=== PATIENT | female | born 1995 | race Caucasian/White ===

== ENCOUNTER 2018-12-24 10:43 | Inpatient (IN) | payer BC ==
[2018-12-24] MEDS ORDERED: Buffered Lidocaine 1% SYRIN* 1 ML/SYRINGE INTRADERM ONE (13:01)
[2018-12-24] MEDS ORDERED: Misoprostol TAB* 100 MCG PO ONE (13:01)
[2018-12-24] MEDS ORDERED: Lactated Ringers 1000 ML Bag* 1,000 ML IV ONE (13:01)
[2018-12-24] MEDS ORDERED: Promethazine INJ(RESTRICTED)* 25 MG/ML 1 ML VIAL IV ONE (13:01)
[2018-12-24] MEDS ORDERED: Nalbuphine* 10 MG/ML 1 ML VIAL IV ONE (13:01)
--- NOTE | 2018-12-24 13:11 | HP ---
General Information - Reason for Visit Pt presents to L&D for IOL for full term and preeclampsia. Pt denies BLAIR or epigastric pain, pt reports increased edema of feet and face. Pt denies LOF or VB. Pt reports +FM. - General Information Maternal Age: 23 Grav: 2 Para: 0 SAB: 1 IEA: 0 Estimated Due Date: 12/19/18 Determined By: LMP Gestational Age in Weeks/Days: 40w 5d Maternal Blood Type and Rh: B Positive - Results this Serology/RPR Result: Non-Reactive Rubella Result: Immune HBsAg Result: Negative HIV Result: Negative GBS Culture Result: Negative Past Medical History Pertinent Past Medical History: Non-Contributory Pertinent Past Surgical History: None Pertinent Family History: See Records - PGM: DM - Antepartal Records Antepartal Records: Reviewed, Complicated by: - BMI 34, anemia, Gestational diabetes diet controlled, preeclampsia Review of Systems Constitutional: Comfortable CV Complaint: No Respiratory: Shortness of Breath: No Gastrointestinal: No Nausea/Vomiting, Normal Bowel Movement Genitourinary: No Dysuria, No Bleeding, No Leaking Fluid Musculoskeletal: No Complaint, No Epigastric Pain Neurological: No Headache, No Visual Changes Movement: Normal Exam Allergies/Adverse Reactions: Allergies No Known Allergies Allergy (Verified 12/24/18 11:35) T:99.1, P:86, R:20, BP:165/80 repeat 146/77, O2:100% Lab Values - Entire Visit: CBC, type and screen and CMP pending. CBC/CMP from 12/21/18: WNL, 24hr urine: 300 - Measurements Height: 5 ft 2 in Weight: 200 lb Weight in lbs: [id number] Body Mass Index (BMI): 36.6 Pre- Weight: 185 lb - Exam Breast: Breast Exam Deferred CVA: No CVA Tenderness Extremities: No Edema Heart: Normal Rhythm/Heart Sounds HEENT: No Significant Findings Lungs: Clear Bilaterally Rectal: Rectal Exam Deferred Reflexes: DTR 2+ Thyroid: No Thyromegaly - Abdominal Exam Abdomen Exam: Fundal Height Consistent with Dates - Ultrasound/Biophysical Profile Ultrasound Status: Not Done Targeted Exam Findings Estimated Weight: [id number] Cervical Exam: Fingertip Effacement: Thick Station: -2 Presenting Part: Vertex Membrane Status: Intact Bleeding/Discharge: None EFM Findings - External Monitor Findings Baseline Heart Rate: 150 External Monitor Findings: Accelerations Present, No Pattern of Variable or Late Decelerations, Variability Moderate, Baseline Stable Contractions: Irregular, Mild, < 45 Seconds Assessment/Plan - Assessment 23 y.o. , 40w5d EGA, preeclampsia, gestational diabetes (diet controlled) , BMI 34, Cat I NST - Obstetrical Risk Factors Obstetrical Risk Factors: Obesity, PreEclampsia, Gestational Diabetes - Plan Plan: Induction - Date/Time of Admission Date of Admission: 12/24/18 Time of Admission: 13:00
[2018-12-24 13:54] LABS: ABS Lymphocytes 1.9 10^3/ul (1.0-4.8); ABS Monocytes 0.7 10^3/ul (0-0.8); ABS Neutrophils 8.2 10^3/ul (1.5-7.7); Eosinophil % 0.4 %; Hematocrit 31 % (35-47); Hemoglobin 10.4 g/dL (12.0-16.0); Lymphocyte % 17.8 %; Mean Corpuscular HGB Conc 34 g/dL (31-36); Mean Corpuscular Hemoglobin 29 pg (27-31); Mean Corpuscular Volume 85 fL (80-97); Mean Platelet Volume 9.6 fL (7.4-10.4); Platelet Count 199 10^3/uL (150-450); Red Blood Count 3.59 10^6 /uL (3.70-4.87); Red Cell Distribution Width 15 % (10-15); White Blood Count 10.9 10^3/uL (3.5-10.8)
[2018-12-24] MEDS ORDERED: Lactated Ringers 1000 ML Bag* 1,000 ML IV SCH (14:00)
[2018-12-24 14:13] LABS: Albumin 3.2 g/dL (3.2-5.2); Albumin/Globulin Ratio 1.1 (1-3); BUN/Creatinine Ratio 16.9 (8-20); Calcium 9.2 mg/dL (8.6-10.3); EGFR African American 152.8 (>60); EGFR Non-African American 126.3 (>60); Potassium 4.1 mmol/L (3.5-5.0); Total Bilirubin 0.2 mg/dL (0.2-1.0); Total Protein 6.2 g/dL (6.4-8.9)
[2018-12-24 14:15] LABS: Urine Benzodiazepine Screen None Detected (None Detect); Urine Opiates Screen None Detected (None Detect)
--- NOTE | 2018-12-24 18:01 | PN ---
Progress Note - Progress Note Date of Service: 12/24/18 SOAP: Subjective: Pt reports mild ctx in lower abdomen with some back cramping. Pt denies LOF, VB or BLAIR/ epigastric pain. Pt reports + FM. Objective: BP:142/76, P:97, R:18, T:98.8 FHR: 150bpm, + accels, -decels, moderate variability Cervix: -2 Laboratory Tests 12/24/18 12/24/18 13:27 13:27 WBC 10.9 H RBC 3.59 L Hgb 10.4 L Hct 31 L MCV 85 MCH 29 MCHC 34 Plt Count 199 Sodium 135 Potassium 4.1 Chloride 105 Carbon Dioxide 22 Anion Gap 8 BUN 10 Creatinine 0.59 Est GFR ( Amer) 152.8 Est GFR (Non-Af Amer) 126.3 BUN/Creatinine Ratio 16.9 Glucose 132 H Calcium 9.2 Total Bilirubin 0.20 AST 15 ALT 10 Alkaline Phosphatase 133 H Total Protein 6.2 L Albumin 3.2 Globulin 3.0 Albumin/Globulin Ratio 1.1 Assessment: 23 y.o. , 40w5d EGA, preeclampsia, GDM (diet controlled) Plan: 1) Counseled on benefits/risks and pt consents to continue with Bonilla insertion. Bonilla Balloon placed. 2) Therapeutic rest and hydrotherapy PRN 3) Questions answered to pt satisfaction.
--- NOTE | 2018-12-25 15:25 | PN ---
Progress Note - Progress Note Date of Service: 12/25/18 SOAP: Subjective: Pt denies contractions, headache, epigastric pain or any other concerns. Objective: 149/83, P: 105, T:98.9, FHR:160bpm, + accels, -decels, moderate variability, AROM- possible thin meconium cervix: 5cm/70/-1 Assessment: 23 y.o. , 40w6d EGA, induction of labor for preeclampsia Plan: 1) AROM 2) Start low dose pitocin in 2 hrs if no active labor
--- NOTE | 2018-12-25 16:30 | PN ---
Progress Note - Progress Note Date of Service: 12/25/18 Note: Pt reports mild irregular cramping and slight increase in pressure. Pt denies contractions. Reviewed options for continued IOL for preeclampsia and pt agrees to continue with low dose pitocin. Reviewed R/B.
[2018-12-25] MEDS ORDERED: Oxytocin in LR* 20 UNITS/1,000 ML BAG IVPB SCH (17:00)
--- NOTE | 2018-12-25 18:53 | PN ---
Progress Note - Progress Note Date of Service: 12/25/18 SOAP: Subjective: Pt reports contractions are increasing in intensity and there is more pressure. Pt coping well. Objective: FHR: 150bpm, + accels, -decels, moderate variability, ctx q 2-3min pitocin at 4. BP:141/68, P:94, R:18, T:98.7 Assessment: 23 y.o. , Preeclampsia, cat I NST, early labor Plan: 1) Cont pitocin 2) Encourage position changes 3) Hydrotherapy PRN 4) Reevaluate in 2 hrs or sooner PRN
[2018-12-25] MEDS ORDERED: OBEPIDURAL* 250 ML EPIDURAL ONE (22:17)
[2018-12-25 22:41] LABS: ABS Basophils 0.1 10^3/ul (0-0.2); ABS Lymphocytes 2.7 10^3/ul (1.0-4.8); ABS Monocytes 1.4 10^3/ul (0-0.8); ABS Neutrophils 10.6 10^3/ul (1.5-7.7); Eosinophil % 0.2 %; Hematocrit 31 % (35-47); Hemoglobin 10.2 g/dL (12.0-16.0); Mean Corpuscular HGB Conc 33 g/dL (31-36); Mean Corpuscular Hemoglobin 28 pg (27-31); Mean Corpuscular Volume 85 fL (80-97); Mean Platelet Volume 9.2 fL (7.4-10.4); Nucleated Red Blood Cells % 0.1; Platelet Count 206 10^3/uL (150-450); Red Blood Count 3.64 10^6 /uL (3.70-4.87); Red Cell Distribution Width 15 % (10-15); White Blood Count 14.8 10^3/uL (3.5-10.8)
--- NOTE | 2018-12-25 22:47 | PN ---
Progress Note - Progress Note Date of Service: 12/25/18 SOAP: Subjective: Pt reports contractions are increasingly more intense, nitrous was working well but pt now requests epidural. Objective: BP:155/92, P:89, T:97.0, FHR: 160bpm, + accels, -decels, moderate variability cervix:5cm/80/-1 pitocin at 4 Assessment: 23 y.o. , 40w6d EGA, PEC, GDM diet controlled, induction of labor with adequate ctx Plan: 1) Anesthesia consult 2) Encourage position changes and rest 3) Sign out to Cathie Myers
[2018-12-25] MEDS ORDERED: Famotidine TAB* 20 MG PO PRN (23:21)
[2018-12-25] MEDS ORDERED: Lactated Ringers 1000 ML Bag* 500 ML IV PRN ×2 (23:21)
[2018-12-25] MEDS ORDERED: Sodium Citrate/Citric Acid* 15 ML UDC PO PRN (23:21)
[2018-12-25] MEDS ORDERED: Phenylephrine 40 MCG/ML SYRINGE IV PUSH PRN ×2 (23:21)
[2018-12-25] MEDS ORDERED: Lactated Ringers 1000 ML Bag* 1,000 ML IV ONE (23:21)
[2018-12-25] MEDS ORDERED: OBEPIDURAL* 250 ML EPIDURAL SCH (23:45)
[2018-12-25] MEDS ORDERED: Lactated Ringers 1000 ML Bag* 1,000 ML IV SCH ×2 (23:45)
--- NOTE | 2018-12-26 02:39 | PN ---
Progress Note - Progress Note Date of Service: 12/26/18 Note: SOAP: Subjective: Pt sleeping soundly. Objective: BP:140/73, P:98 FHR: 160bpm, + accels, -decels, moderate variability cervix: deferred pitocin at 4 Assessment: 23 y.o. , 40w6d EGA, PEC, GDM diet controlled induction of labor with adequate ctx No evidence of acidemia VSS Plan: 1) Continue to titrate pitocin as tolerated 2) VE when pt awake 3) Anticipate progression to
--- NOTE | 2018-12-26 07:20 | PN ---
Progress Note - Progress Note Date of Service: 12/26/18 Note: Subjective: Pt more uncomfortable with contractions. Objective: BP:140/73, P:98 FHR: 155 bpm, + accels, -decels, moderate variability cervix: 5/80/-1, vtx pitocin at 2 IUPC placed without difficulty Assessment: 23 y.o. , 40w6d EGA, PEC, GDM diet controlled Induction of labor No evidence of acidemia VSS Plan: Monitor contractions for adequacy If adequate contractions and no cervical change. delivery indicated. Will given report to Tiffany Irwin MD
[2018-12-26] MEDS ORDERED: Sodium Citrate/Citric Acid* 15 ML UDC ONE (08:15)
[2018-12-26] MEDS ORDERED: ceFOXitin 2 GM IVPREMIX* 2 GM/50 ML BAG ONE (08:15)
[2018-12-26] MEDS ORDERED: Chloroprocaine 3%* 20 ML VIAL ONE (08:23)
[2018-12-26] MEDS ORDERED: fentaNYL* 50 MCG/ML 2 ML VIAL (100 MCG VIAL) ONE ×2 (08:23→09:24)
[2018-12-26] MEDS ORDERED: Ondansetron INJ* 2 MG/ML VIAL ONE (08:31)
[2018-12-26] MEDS ORDERED: Dexamethasone IV* 4 MG/ML 1 ML (4 MG) ONE (08:31)
[2018-12-26] MEDS ORDERED: OXYTOCIN* 10 UNITS/ML 1 ML VIAL ONE (08:31)
[2018-12-26] MEDS ORDERED: Phenylephrine 40 MCG/ML SYRINGE ONE (09:18)
[2018-12-26] MEDS ORDERED: Ketorolac INJ* 30 MG/ML 1 ML VIAL ONE (09:22)
[2018-12-26] MEDS ORDERED: Morphine PF AMP (0.5MG/ML)* 5 MG/10 ML AMP ONE (09:28)
[2018-12-26] MEDS ORDERED: Methylergonovine INJ* 0.2 MG/ML 1ML AMP ONE (10:03)
[2018-12-26] MEDS ORDERED: Glycerin ADULT SUPP PR PRN (10:03)
[2018-12-26] MEDS ORDERED: oxyCODONE/Acetamin 5/325 MG* TAB PO PRN (10:03)
[2018-12-26] MEDS ORDERED: Dibucaine 1% 28.35 GM TUBE PR PRN (10:03)
[2018-12-26] MEDS ORDERED: Misoprostol TAB* 200 MCG PR ONE (10:03)
[2018-12-26] MEDS ORDERED: Zolpidem TAB* 5 MG PO PRN (10:03)
[2018-12-26] MEDS ORDERED: Misoprostol TAB* 200 MCG ONE (10:03)
[2018-12-26] MEDS ORDERED: Methylergonovine INJ* 0.2 MG/ML 1ML AMP IM ONE (10:03)
[2018-12-26] MEDS ORDERED: Acetaminophen IV 1GM/100ML * 100 ML ONE (10:04)
[2018-12-26] MEDS ORDERED: Acetaminophen IV 1GM/100ML * 1,000 MG/100 ML VIAL IVPB ONE (10:07)
[2018-12-26] MEDS ORDERED: Naloxone* 0.4 MG/ML 1 ML VIAL IV PRN ×2 (10:07)
[2018-12-26] MEDS ORDERED: Ondansetron INJ* 2 MG/ML VIAL IV PRN (10:07)
[2018-12-26] MEDS ORDERED: Scopolamine 1.5 mg* PATCH TRANSDERM PRN ×2 (10:07)
[2018-12-26] MEDS ORDERED: oxyCODONE TAB* 5 MG TAB PO PRN ×2 (10:07)
[2018-12-26] MEDS ORDERED: Nalbuphine* 10 MG/ML 1 ML VIAL IV PRN (10:07)
[2018-12-26] MEDS ORDERED: fentaNYL* 50 MCG/ML 2 ML VIAL (100 MCG VIAL) IV PRN (10:07)
[2018-12-26] MEDS ORDERED: DiMENhydriNATE IV* 50 MG/ML VIAL IV PUSH PRN (10:07)
[2018-12-26] MEDS ORDERED: Lactated Ringers 1000 ML Bag* 1,000 ML IV SCH (11:00)
[2018-12-26] MEDS: Ketorolac INJ* 30 MG/ML 1 ML VIAL IV SCH ×3 (11:00→23:56)
[2018-12-26] MEDS ORDERED: Oxytocin in LR* 20 UNITS/1,000 ML BAG IVPB SCH (11:00)
--- NOTE | 2018-12-26 11:54 | OP ---
DATE OF OPERATION: 12/25/18 DATE OF : 89 SURGEON: Dr. Irwin. SOLE LEVELER MACHINE: Desriae Aguirre CNM ANESTHESIA: Epidural. PRE-OP DIAGNOSES: 1. Arrest of dilation/descent. 2. Gestational diabetes. 3. Preeclampsia. 4. Failed induction. POST-OP DIAGNOSES: 1. Arrest of dilation/descent. 2. Gestational diabetes. 3. Preeclampsia. 4. Failed induction. OPERATIVE PROCEDURE: Low-transverse section. ESTIMATED BLOOD LOSS: 600 cc. FINDINGS: Include a variable female Apgars 9 and 10 and the weight was 7 pounds 11 ounces. This is a 23-year-old, 2, para 0, who presented at 40 weeks' gestation for induction with mild preeclampsia. She was started with a Cook catheter and progressed up to 5 cm. She received an epidural and continued on Pitocin. Rupture of membranes was done and the patient did not progress beyond that despite adequate amount of the day or units. At the time of , she had normal uterus, fallopian tubes and ovaries. DESCRIPTION OF PROCEDURE: The patient identified, procedure identified as a lower transverse section. The patient was taken to the operating room , prepped and draped in the usual fashion. In left lateral recumbent position under epidural anesthesia, a Pfannenstiel incision was made in the abdomen and carried down through fat, fascia, and peritoneum. A transverse incision was made in the lower uterine segment and extended laterally using blunt dissection. The above was delivered through the incision with these. The cord was doubly clamped and cut and the infant was handed to the awaiting paper cutting machine operator. Cord blood was obtained. Placenta delivered spontaneously. The uterus was wiped out with wet lap sponge. The uterine incision was then closed using 0 Polysorb in a running fashion. A second layer was used to imbricate the first layer. Uterine atony was noted during the procedure and she was given Methergine and misoprostol rectally. The uterus was placed back in the abdominal cavity. The gut was wiped out with a wet lap sponge. Good hemostasis was noted in the intraperitoneal space and the peritenoneum was then closed using 3-0 Polysorb in a running fashion. Hemostasis was achieved in the subrectus layers. The fascia was closed using 0 Polysorb in a running fashion. Good hemostasis achieved in subcu. The 3-0 Vicryl was used to close the space and then 4-0 Monocryl was used to close the skin in a subcuticular fashion. Mastisol and Steri-Strips were applied. The patient returned to the recovery room in stable condition.Sponge and instrument counts were correct. [id number]/[facility] #: [id number] [facility]
[2018-12-26] MEDS: Acetaminophen TAB* 325 MG PO SCH ×2 (12:29→21:14)
[2018-12-26] MEDS: Simethicone TAB* 80 MG TAB.CHEW PO SCH ×3 (12:30→21:14)
[2018-12-26] MEDS: Docusate CAP* 100 MG PO SCH ×2 (14:15→21:14)
[2018-12-27] MEDS: Acetaminophen TAB* 325 MG PO SCH (04:55)
[2018-12-27 06:42] LABS: ABS Lymphocytes 1.3 10^3/ul (1.0-4.8); ABS Neutrophils 10.5 10^3/ul (1.5-7.7); Eosinophil % 0.1 %; Hematocrit 21 % (35-47); Hemoglobin 7.1 g/dL (12.0-16.0); Mean Corpuscular HGB Conc 34 g/dL (31-36); Mean Corpuscular Hemoglobin 30 pg (27-31); Mean Corpuscular Volume 87 fL (80-97); Mean Platelet Volume 9.1 fL (7.4-10.4); Platelet Count 147 10^3/uL (150-450); Red Cell Distribution Width 15 % (10-15); White Blood Count 12.9 10^3/uL (3.5-10.8)
[2018-12-27] MEDS ORDERED: Varicella Virus Vaccine Live* 0.5 ML VIAL SUBCUT ONE (09:00)
[2018-12-27] MEDS ORDERED: Ferrous Gluconate TAB* 324 MG TAB PO SCH ×2 (09:00)
[2018-12-27] MEDS: Docusate CAP* 100 MG PO SCH ×3 (09:03→21:01)
[2018-12-27] MEDS: Ketorolac INJ* 30 MG/ML 1 ML VIAL IV SCH (09:04)
[2018-12-27] MEDS: Simethicone TAB* 80 MG TAB.CHEW PO SCH ×4 (09:05→21:01)
[2018-12-27] MEDS ORDERED: Ferrous Sulfate TAB* 325 MG ONE (10:54)
[2018-12-27] MEDS: oxyCODONE/Acetamin 5/325 MG* TAB PO PRN (12:02)
[2018-12-27] MEDS: Ibuprofen TAB* 600 MG PO PRN (18:13)
[2018-12-27] MEDS: Ferrous Gluconate TAB* 324 MG TAB PO SCH (21:01)
[2018-12-28] MEDS: oxyCODONE/Acetamin 5/325 MG* TAB PO PRN ×2 (00:07→21:55)
[2018-12-28 06:27] LABS: ABS Eosinophils 0.1 10^3/ul (0-0.6); ABS Lymphocytes 1.8 10^3/ul (1.0-4.8); ABS Neutrophils 7.1 10^3/ul (1.5-7.7); Eosinophil % 0.9 %; Hematocrit 23 % (35-47); Hemoglobin 7.6 g/dL (12.0-16.0); Lymphocyte % 17.7 %; Mean Corpuscular HGB Conc 33 g/dL (31-36); Mean Corpuscular Hemoglobin 29 pg (27-31); Mean Corpuscular Volume 87 fL (80-97); Mean Platelet Volume 8.4 fL (7.4-10.4); Nucleated Red Blood Cells % 0.1; Platelet Count 184 10^3/uL (150-450); Red Blood Count 2.64 10^6 /uL (3.70-4.87); Red Cell Distribution Width 15 % (10-15)
[2018-12-28] MEDS: Ibuprofen TAB* 600 MG PO PRN ×3 (08:22→21:35)
[2018-12-28] MEDS: Simethicone TAB* 80 MG TAB.CHEW PO SCH ×4 (08:22→21:36)
[2018-12-28] MEDS: Docusate CAP* 100 MG PO SCH ×3 (08:22→21:36)
[2018-12-28] MEDS: Ferrous Gluconate TAB* 324 MG TAB PO SCH ×2 (08:22→21:36)
--- NOTE | 2018-12-28 09:30 | PN ---
Progress Note - Progress Note Date of Service: 12/28/18 Note: S: POD#2 s/p pLTCS for AOD. Pt doing well, no complaints. Reports that is going well and milk production is increasing. Voiding spontaneously and without difficulty. Passing flatus. Denies feeling feverish. Denies cp, sob. O: AVSS Gen: nad, aaox3, sitting up in bed nursing baby CV: RRR Pulm: CTABl Abd: soft, nd, appropriately ttp, Incision: c/d/i with sutures and steris, no erythema, induration, drainage or bleeding Ext: trace edema, warm, nttp, negative patti's A/P: 23 y/o POD#2 s/p pLTCS for AOD, complicated by PreE and GDMA1 - Temp of 101.0 this am, defervesced to 99 on re-check, though pt did receive Ibuprofen. Pt denies feeling feverish or chills and is asymptomatic. She is and does report milk coming in overnight. She does not appear toxic, all other vitals are WNL and there are no other signs/sx of infectious etiology. WBC this AM was WNL. Will continue to monitor closely and if spikes temp again will initiate further workup. - GDMA1 - Fasting FSBG 67 this AM. DC fingersticks. - Anemia - Hct 21 initially post-op --> increased to 23 this AM, continue PO fe , pt asymptomatic. - PreE - BP's normotensive, pt asymptomatic - Encouraged ambulation and Incentive Spirometry - Continue routine care DO BECKA Forbes
[2018-12-28] MEDS: Acetaminophen TAB* 325 MG PO PRN ×2 (10:45→16:57)
[2018-12-29 07:24] VITALS: BP 123/68
[2018-12-29] MEDS: Acetaminophen TAB* 325 MG PO PRN (09:44)
[2018-12-29] MEDS: Ferrous Gluconate TAB* 324 MG TAB PO SCH (09:44)
[2018-12-29] MEDS: Ibuprofen TAB* 600 MG PO PRN (09:45)
[2018-12-29] MEDS: Docusate CAP* 100 MG PO SCH (09:45)
[2018-12-29] MEDS: Simethicone TAB* 80 MG TAB.CHEW PO SCH (09:45)
[2018-12-29] MEDS ORDERED: Scopolamine PATCH Remove* 1 NOTE MISC PATCH OFF ONE (10:07)
[2018-12-29] MEDS ORDERED: Scopolamine PATCH Remove* 1 NOTE MISC PATCH OFF PRN (10:08)
== END 2018-12-29 13:15 | disposition home or self-care (01) | DRG 540 ==
LOC: MCHOBOUT 10:43 → MCHOB 13:14
PROVIDERS: ADMIT Midwife; ATTEND Obstetrics & Gynecology
PROC: 10D00Z1 Extraction of Products of Conception, Low, Open Approach (ICD-10-PCS; principal; 2018-12-26)
PROC: 10907ZC Drainage of Amniotic Fluid, Therapeutic from Products of Conception, Via Natural or Artificial Opening (ICD-10-PCS; 2018-12-26)
PROC: 3E033VJ Introduction of Other Hormone into Peripheral Vein, Percutaneous Approach (ICD-10-PCS; 2018-12-26)
DX: O14.94 Unspecified pre-eclampsia, complicating childbirth (principal); O99.214 Obesity complicating childbirth; O62.0 Primary inadequate contractions; O61.0 Failed medical induction of labor; O77.0 Labor and delivery complicated by meconium in amniotic fluid; O24.420 Gestational diabetes mellitus in childbirth, diet controlled; O90.81 Anemia of the puerperium; D64.9 Anemia, unspecified; Z3A.41 41 weeks gestation of pregnancy; Z37.0 Single live birth
CPT/HCPCS: 36415; 80053; 80307; 85025; 86850; 86900; 86901; A9270-GY; J0694; J1100; J1885; J2210; J2300; J2400; J2405; J2550; J2590; J3010; S0191

== ENCOUNTER 2021-10-31 05:29 | Inpatient (IN) ==
[2021-10-31] MEDS ORDERED: ceFOXitin 2 GM PREMIX 50 ML IVPB ONE (07:00)
[2021-10-31 07:18] LABS: ABS Eosinophils 0.1 10^3/ul (0-0.6); ABS Lymphocytes 2.4 10^3/ul (1.0-4.8); ABS Monocytes 1.1 10^3/ul (0-0.8); Eosinophil % 0.4 %; Hematocrit 32 % (35-47); Hemoglobin 10.2 g/dL (12.0-16.0); Lymphocyte % 20.5 %; Mean Corpuscular HGB Conc 32 g/dL (31-36); Mean Corpuscular Hemoglobin 28 pg (27-31); Mean Corpuscular Volume 86 fL (80-97); Mean Platelet Volume 9.6 fL (7.4-10.4); Nucleated Red Blood Cells % 0.1; Platelet Count 209 10^3/uL (150-450); Red Blood Count 3.66 10^6 /uL (3.70-4.87); Red Cell Distribution Width 14 % (10-15); White Blood Count 11.5 10^3/uL (3.5-10.8)
[2021-10-31] MEDS ORDERED: Sodium Citrate/Citric Acid LIQ 15 ML UDC PO ONE (08:15)
[2021-10-31] MEDS ORDERED: Buffered Lidocaine 1% SYRIN 1 ml INTRADERM ONE (08:15)
[2021-10-31] MEDS ORDERED: Sodium Citrate/Citric Acid LIQ 15 ML UDC ONE (08:21)
[2021-10-31] MEDS ORDERED: Morphine PF AMP (0.5MG/ML) 5 MG/10 ML AMP ONE (08:37)
[2021-10-31] MEDS ORDERED: Oxytocin 10 UNITS/ML 1 ML VIAL ONE (08:38)
[2021-10-31] MEDS ORDERED: Bupivacaine 0.5% SDV PF 30ML VIAL ONE (08:40)
[2021-10-31] MEDS ORDERED: Acetaminophen IV 1 GM/100ML 1,000 MG/100 ML BAG IV ONE (08:58)
[2021-10-31] MEDS ORDERED: Dexamethasone IV 4 MG/ML VIAL 1 ml VIAL ONE (08:59)
[2021-10-31] MEDS ORDERED: Lactated Ringers 1000 ml BAG 1,000 ML IV SCH ×2 (09:00→11:00)
[2021-10-31] MEDS ORDERED: Ondansetron 4 mg VIAL 2 MG/ML 2 ml VIAL ONE (09:11)
[2021-10-31] MEDS ORDERED: Witch Hazel PAD JAR TOPICAL PRN (10:34)
[2021-10-31] MEDS ORDERED: Glycerin ADULT 2.4 gm SUPP PR PRN (10:34)
[2021-10-31] MEDS ORDERED: Oxytocin in LR 20,000 MILLI.UNIT/1,000 ML BAG IV SCH (10:45)
[2021-10-31] MEDS ORDERED: Ondansetron 4 mg VIAL 2 MG/ML 2 ml VIAL IV PRN ×2 (10:46→10:47)
[2021-10-31] MEDS ORDERED: Naloxone 0.4 mg VIAL 0.4 mg/ml 1 ml VIAL IV PRN (10:46)
[2021-10-31] MEDS ORDERED: fentaNYL 100 mcg/2 ml 50 MCG/ML VIAL IV PRN (10:46)
[2021-10-31] MEDS ORDERED: Metoclopramide 5 MG/ML VIAL (10 mg) IV PRN (10:47)
[2021-10-31] MEDS ORDERED: Naloxone 0.4 mg VIAL 0.4 mg/ml 1 ml VIAL IV PUSH PRN (10:47)
[2021-10-31] MEDS ORDERED: Acetaminophen IV 1 GM/100ML 1,000 MG/100 ML BAG IV PRN (10:47)
[2021-10-31 12:40] LABS: Urine Appearance Clear; Urine Color Yellow
[2021-10-31 12:41] LABS: Urine Bilirubin Negative (Negative); Urine Blood Trace (Intact) (Negative); Urine Glucose Negative (Negative); Urine Ketones Negative (Negative); Urine Nitrite Negative (Negative); Urine Protein Negative (Negative); Urine Urobilinogen 0.2 (Negative) (Negative)
[2021-10-31 12:54] LABS: Urine Bacteria Absent (Absent); Urine Red Blood Cell 2+(6-10/hpf) (Absent); Urine Squamous Epithelial Cell Present (Absent); Urine White Blood Cell Trace(0-5/hpf) (Absent)
[2021-11-01 06:24] LABS: ABS Basophils 0.1 10^3/ul (0-0.2); ABS Eosinophils 0.1 10^3/ul (0-0.6); ABS Lymphocytes 2.8 10^3/ul (1.0-4.8); ABS Monocytes 1.2 10^3/ul (0-0.8); ABS Neutrophils 7.4 10^3/ul (1.5-7.7); Eosinophil % 0.7 %; Hematocrit 24 % (35-47); Hemoglobin 7.5 g/dL (12.0-16.0); Lymphocyte % 24.2 %; Mean Corpuscular HGB Conc 31 g/dL (31-36); Mean Corpuscular Hemoglobin 27 pg (27-31); Mean Corpuscular Volume 87 fL (80-97); Mean Platelet Volume 8.9 fL (7.4-10.4); Nucleated Red Blood Cells % 0.2; Platelet Count 173 10^3/uL (150-450); Red Blood Count 2.77 10^6 /uL (3.70-4.87); Red Cell Distribution Width 14 % (10-15); White Blood Count 11.5 10^3/uL (3.5-10.8)
[2021-11-01] MEDS ORDERED: Varicella Virus Vaccine Live 0.5 ML VIAL SUBCUT ONE (09:00)
[2021-11-02 09:05] VITALS: BP 131/53
== END 2021-11-02 13:15 | disposition home or self-care (01) | DRG 540 ==
LOC: MCHOB 05:29
PROVIDERS: ADMIT Obstetrics & Gynecology; ATTEND Obstetrics & Gynecology